=== PATIENT | male | born 1955 | race Two or more races ===

== ENCOUNTER 2020-02-15 06:07 | Day surgery (SDC) | payer OTHER ==
[~2020-02-15 06:07] MED LIST: PREVACID30 MG PO
== END 2020-02-15 13:50 | disposition home or self-care (01) ==
LOC: CIR.AMB 06:07 → ADM 09:45 → CIR.AMB 09:45
PROVIDERS: ATTEND Orthopaedic Surgery Hand Surgery
DX: M77.11 Lateral epicondylitis, right elbow (principal)